=== PATIENT | male | born 1995 | race African-American/Black ===

== ENCOUNTER 2017-03-25 14:35 | Emergency (ER) | payer OTHER ==
--- NOTE | ~2017-03-25 | CR181 ---
[facility] A Service of [facility] & [facility] RADIOLOGY TEXT RESULTS PATIENT: TYLER BRITO LOCATION: [facility] : [birth year] UNIT #: [id number] AGE: [address]: Elissa Nixon APRN SEX: M ORDER DR: [id number] [facility] [address] [place], [place] [address] [id number] MR#: [id number] Acc #: [id number] NAME: TYLER BRITO : 1995 SEX: M STUDY DATE/TIME: 03/25/2017 16:11 UNIT: [facility] ROOM: STUDY DESCRIPTION: CR Lumbar Spine 2 or 3 Views Attending Physician: Elissa Nixon A.P.R.N. Referring Physician: Cosme Espinoza M.D. Ordering Physician: Ed Manuel Sullivan M.D. Primary Care Physician: No Primary Care Physician MEDICAL IMAGING REPORT This report is preliminary unless electronic signature is present EXAM Lumbar spine, 3 views. HISTORY Low back pain beginning this morning. No known injury. Complains of bilateral lower extremity tingling. FINDINGS AP and lateral projections of the lumbar segment show good mineralization of both anterior and posterior elements. They are all anatomically normal without indication of fracture, dislocation, or malignant change of a sclerotic or lytic type. There is no congenital defect noted. The sacroiliac joints are normal. IMPRESSION Normal lumbar spine. Dictated by... Beatris Murphy M.D. THIS IS AN ELECTRONICALLY VERIFIED REPORT Beatris Murphy M.D. at 03/25/2017 9:10 PM Marina TD: 03/25/2017 18:45 JOB #: [id number] MEDICAL IMAGING REPORT Page 1 of 1 COPY
[2017-03-25 16:08] LABS: URINE SOURCE CLEAN CATCH
[2017-03-25 16:14] LABS: URINE APPEARANCE CLOUDY; URINE BILIRUBIN NEG (NEG); URINE BLOOD NEG (NEG); URINE COLOR YELLOW; URINE GLUCOSE NEG (NEG); URINE KETONE NEG (NEG); URINE LEUKOCYTE ESTERASE NEG (NEG); URINE NITRATE NEG (NEG); URINE PROTEIN NEG (NEG)
[2017-03-25 16:19] LABS: BASOPHIL% 0.6 % (0-2.5); HEMATOCRIT 44.1 % (38.0-50.0); HEMOGLOBIN 14.2 gm/dL (13.0-16.0); LYMPHOCYTE# 2.1 X10e3 (1.0-3.5); LYMPHOCYTE% 50.4 % (17.0-45.0); MEAN CELL VOLUME 87.1 FL (83-96); MEAN CORPUSCULAR HGB CONC 32.2 g/dL (30-36); MEAN PLATELET VOLUME 10.1 FL (6.5-11.5); MONOCYTE# 0.4 X10e3 (0-1.0); MONOCYTE% 10.7 % (3.0-12.0); NEUTROPHIL# 1.5 X10e3 (1.5-7.1); NEUTROPHIL% 37.3 % (40-75); RED BLOOD COUNT 5.06 X10e (3.90-5.60); RED CELL DISTRIBUTION WIDTH 13.5 % (11.0-15.5); WHITE BLOOD COUNT 4.1 X10e3 (4.0-10.5)
[2017-03-25 16:21] LABS: CULTURE INDICATED? NO
[2017-03-25 16:35] LABS: PLATELET COUNT 154 X10e3 (140-420)
[2017-03-25 16:36] LABS: DIFF IND YES
[2017-03-25 16:39] LABS: PLATELET ESTIMATE NORMAL (NORMAL)
[2017-03-25 16:41] LABS: RBC NORMAL YES
[2017-03-25 16:43] LABS: BUN/CREATININE RATIO 11.11; CALCIUM SERUM 9.4 mg/dL (8.4-10.2); CREATININE SERUM 0.9 mg/dL (0.6-1.4); POTASSIUM 3.2 mmol/L (3.5-5.1)
== END 2017-03-25 17:10 | disposition home or self-care (01) ==
LOC: CED 14:35 → CFTX 14:35
PROVIDERS: Nurse Practitioner
DX: M54.5 Low back pain (principal); E87.6 Hypokalemia; R60.0 Localized edema; F17.210 Nicotine dependence, cigarettes, uncomplicated; Z87.442 Personal history of urinary calculi
CPT/HCPCS: 36415; 72100; 80048; 81003; 85025; 99284